=== PATIENT | female | born 1995 | race Caucasian/White ===

== ENCOUNTER 2021-02-07 07:18 | Inpatient (IN) | payer BC ==
[~2021-02-07] VITALS: Ht 167.6 cm; Wt 106.6 kg
[2021-02-07 09:07] LABS: BASOPHILS ABSOLUTE AUTO 0.03 K/mm3 (0.00-0.23); BASOPHILS PERCENT AUTO 0 % (0-2); EOSINOPHILS ABSOLUTE AUTO 0.05 K/mm3 (0.00-0.68); EOSINOPHILS PERCENT AUTO 1 % (0-6); Hematocrit 40.3 % (33.0-51.0); Hemoglobin 13.9 g/dL (11.5-16.0); IMMATURE GRAN ABSOLUTE AUTO 0.05 K/mm3 (0.00-0.10); IMMATURE GRAN PERCENT AUTO 1 % (0-1); LYMPHOCYTES PERCENT AUTO 25 % (21-46); MONOCYTES ABSOLUTE AUTO 0.38 K/mm3 (0.16-1.47); MONOCYTES PERCENT AUTO 4 % (4-13); Mean Corpuscular HGB 29.7 pg (26.0-34.0); Mean Corpuscular HGB Conc 34.5 g/dL (31.5-36.5); Mean Corpuscular Volume 86 fL (80-100); Mean Platelet Volume 12.3 fL (9.1-12.4); NEUTROPHILS ABSOLUTE AUTO 6.25 K/mm3 (1.96-9.15); NEUTROPHILS PERCENT AUTO 69 % (41-73); Platelet Count 198 K/mm3 (150-400); RDW Coefficient Variation 14.6 % (11.7-14.2); RDW Standard Deviation 45.9 fL (35.1-46.3); Red Blood Cell Count 4.68 M/mm3 (3.80-5.20); White Blood Cell Count 9.06 K/mm3 (4.00-11.30)
[2021-02-07 09:21] LABS: SARS-Cov-2 (COVID-19) PCR, MMC NEGATIVE (NEGATIVE)
[2021-02-07] MEDS ORDERED: PRENATAL TABLE1 EAC2 PO (09:43)
[2021-02-07] MEDS ORDERED: Acerola C500 MG PO (09:44)
[2021-02-07] MEDS ORDERED: FERROUS SULFAT325 M3 PO (09:44)
[2021-02-08] MEDS ORDERED: DOCU100 PO (13:35)
[2021-02-08] MEDS ORDERED: IBUP800 PO (13:35)
--- NOTE | 2021-02-08 16:26 | NUR ---
1545 assumed care of patient sleeping. s/o at bedside caring for
--- NOTE | 2021-02-08 16:27 | NUR ---
1615 awake and working on . having latch issues. reports lower back pain and mild cramping but denies need for pain medication at this time
--- NOTE | 2021-02-08 17:08 | NUR ---
1640 LATCHED USING SHIELD AND WAS SUCKING WELL. LIPS FLARED APPROPRIATELY. PATIENT REOPRST LATCH VERY PAINFUL IN HER ENTIRE NIPPLE AREA. RELATCHED TWICE WITH NO IMPROVEMENT. REMOVED SHIELD AND LATCHED BABY DIRECTLY ON THE NIPPLE. LATCHED WELL AND SUCKING WELL WITH APPROPRIATE AMT OF AREOLA IN HER MOUTH. PATIENT REPORTS STILL PAINFUL. NO SKIN BREAKDOWN PRESENT. BABY NURSED FOR 15 MINUTES MOM STATES PAIN NEVER REALLY IMPROVED. WILL SWITCH TO RIGHT BREAST WITH NEXT FEED AND EVEALUATE DISCOMFORT
[2021-02-09 06:50] LABS: Hematocrit 38.7 % (33.0-51.0); Hemoglobin 12.5 g/dL (11.5-16.0); Mean Corpuscular HGB 29.1 pg (26.0-34.0); Mean Corpuscular HGB Conc 32.3 g/dL (31.5-36.5); Mean Corpuscular Volume 90 fL (80-100); Platelet Count 184 K/mm3 (150-400); RDW Coefficient Variation 15.2 % (11.7-14.2); RDW Standard Deviation 49.6 fL (35.1-46.3); White Blood Cell Count 9.18 K/mm3 (4.00-11.30)
== END 2021-02-09 17:55 | disposition home or self-care (01) | DRG 807 ==
LOC: OBS 07:18 → BC 07:18 → OBS 08:03 → BC 08:15
PROVIDERS: ADMIT Nurse Practitioner Obstetrics & Gynecology
PROC: 10E0XZZ Delivery of Products of Conception, External Approach (ICD-10-PCS; principal; 2021-02-08)
PROC: 0KQM0ZZ Repair Perineum Muscle, Open Approach (ICD-10-PCS; 2021-02-08)
PROC: 3E0R3BZ Introduction of Anesthetic Agent into Spinal Canal, Percutaneous Approach (ICD-10-PCS; 2021-02-08)
PROC: 00HU33Z Insertion of Infusion Device into Spinal Canal, Percutaneous Approach (ICD-10-PCS; 2021-02-08)
DX: O42.02 Full-term premature rupture of membranes, onset of labor within 24 hours of rupture (principal); Z37.0 Single live birth; O70.1 Second degree perineal laceration during delivery; Z3A.40 40 weeks gestation of pregnancy; Z20.822 Contact with and (suspected) exposure to COVID-19; O69.81X0 Labor and delivery complicated by cord around neck, without compression, not applicable or unspecified; Z88.1 Allergy status to other antibiotic agents
CPT/HCPCS: 36415; 51702; 59025; 81003; 85025; 85027; 86850; 86900; 86901; A9270; J0290; J1885; J2210; J2590; J3010; J7120; U0004

== ENCOUNTER → 2022-05-12 | Outpatient (CLI) | payer BC ==
[~2022-05-12] MED LIST: Acerola C500 MG PO; DOCU100 PO; FERROUS SULFAT325 M3 PO; IBUP800 PO; PRENATAL TABLE1 EAC2 PO
== END | disposition home or self-care (01) ==
LOC: LAB 08:30 → LAB SHORT 08:30
DX: N76.0 Acute vaginitis (principal); R31.9 Hematuria, unspecified
CPT/HCPCS: 87077; 87086; 87186

== ENCOUNTER → 2023-05-02 | Outpatient (CLI) | payer BC | LOC: LAB 16:12 → LAB SHORT 16:12 | DX: R30.0 Dysuria (principal) | CPT/HCPCS: 87077; 87086; 87186 ==

== ENCOUNTER → 2024-06-07 | Outpatient (CLI) | payer BC ==
[2024-06-10 11:23] LABS: HEPATITIS C AB CIA INTERP Negative (Negative); HEPATITIS C ANTIBODY CIA INDEX 0.18 IV
== END ==
LOC: LAB SHORT 18:40 → LAB 18:40
PROVIDERS: Advanced Practice Midwife
DX: Z34.93 Encounter for supervision of normal pregnancy, unspecified, third trimester (principal)
CPT/HCPCS: 86803

== ENCOUNTER → 2024-08-08 | Outpatient (CLI) | payer BC ==
[2024-08-08 16:39] LABS: BASOPHILS ABSOLUTE AUTO 0.02 K/mm3 (0.00-0.23); BASOPHILS PERCENT AUTO 0 % (0-2); EOSINOPHILS ABSOLUTE AUTO 0.04 K/mm3 (0.00-0.68); EOSINOPHILS PERCENT AUTO 1 % (0-6); Hematocrit 36.2 % (33.0-51.0); Hemoglobin 12.2 g/dL (11.5-16.0); IMMATURE GRAN ABSOLUTE AUTO 0.02 K/mm3 (0.00-0.10); IMMATURE GRAN PERCENT AUTO 0 % (0-1); LYMPHOCYTES ABSOLUTE AUTO 2.02 K/mm3 (0.84-5.20); LYMPHOCYTES PERCENT AUTO 25 % (21-46); MONOCYTES ABSOLUTE AUTO 0.26 K/mm3 (0.16-1.47); MONOCYTES PERCENT AUTO 3 % (4-13); Mean Corpuscular HGB 28.8 pg (26.0-34.0); Mean Corpuscular HGB Conc 33.7 g/dL (31.5-36.5); Mean Corpuscular Volume 85 fL (80-100); Mean Platelet Volume 12.3 fL (9.1-12.4); NEUTROPHILS ABSOLUTE AUTO 5.72 K/mm3 (1.96-9.15); NEUTROPHILS PERCENT AUTO 71 % (41-73); Platelet Count 192 K/mm3 (150-400); RDW Coefficient Variation 14.2 % (11.7-14.2); RDW Standard Deviation 42.8 fL (35.1-46.3); Red Blood Cell Count 4.24 M/mm3 (3.80-5.20); White Blood Cell Count 8.08 K/mm3 (4.00-11.30)
[2024-08-08 17:26] LABS: Albumin, Blood 2.6 g/dL (3.4-5.0); Albumin/Globulin Ratio 0.7 (0.8-1.8); Bilirubin, Total 0.5 mg/dL (0.1-1.0); Bun/Creatinine Ratio 13.9 (12.0-20.0); Calcium, Blood 8.4 mg/dL (8.5-10.1); Creatinine, Blood 0.58 mg/dL (0.40-1.00); Globulin, Blood 3.8 g/dL (2.2-4.0); Potassium, Blood 3.7 mmol/L (3.5-5.5); Total Protein, Blood 6.4 g/dL (6.4-8.2)
== END ==
LOC: LAB 13:48 → LAB SHORT 13:48
PROVIDERS: Advanced Practice Midwife
DX: O16.3 Unspecified maternal hypertension, third trimester (principal)
CPT/HCPCS: 80053; 85025

== ENCOUNTER → 2024-08-10 | Outpatient (CLI) | payer BC ==
[2024-08-10 10:59] LABS: Protein, Urine Quantitative 9.9 mg/dL (0.0-11.9)
== END | disposition home or self-care (01) ==
LOC: LAB SHORT 07:15 → LAB 07:15
PROVIDERS: Advanced Practice Midwife
DX: O16.3 Unspecified maternal hypertension, third trimester (principal)
CPT/HCPCS: 81050; 84156

== ENCOUNTER 2024-08-15 02:50 | Inpatient (IN) | payer BC ==
[~2024-08-15] VITALS: Ht 167.6 cm; Wt 114.0 kg
[2024-08-15] VITALS (30 sets, daily range): BP systolic 108–141; BP diastolic 57–92
[2024-08-15] MEDS ORDERED: OXYTOCIN/RINGER'S LACTATE 500 ML IV PRN (03:35)
[2024-08-15] MEDS ORDERED: Acetaminophen 500 MG Tab PO PRN (03:35)
[2024-08-15] MEDS ORDERED: Lactated Ringer's 1,000 ML IV PRN (03:35)
[2024-08-15] MEDS ORDERED: Calcium Carbonate 500 MG Tab Chew PO PRN (03:35)
[2024-08-15] MEDS ORDERED: ePHEDrine Sulfate 50 MG/ML 1ML Injection XX PRN (03:35)
[2024-08-15] MEDS ORDERED: Misoprostol 200 MCG Tab PR PRN (03:35)
[2024-08-15] MEDS ORDERED: FentaNYL 2mcg/ml-Bup 0.1% Epd 250 ML EPI PRN (03:35)
[2024-08-15] MEDS ORDERED: Tranexamic Acid 100 ML IV SCH (03:35)
[2024-08-15] MEDS ORDERED: Oxytocin 10 Unit / ML Vial IM PRN (03:35)
[2024-08-15] MEDS ORDERED: Lactated Ringer's 1,000 ML IV SCH ×3 (03:35→07:45)
[2024-08-15] MEDS ORDERED: Carboprost Tromethamine 250 MCG/ML 1ML Amp IM PRN ×2 (03:35→07:45)
[2024-08-15] MEDS ORDERED: Ondansetron HCl 2 MG / ML 2ML Vial IV PRN (03:35)
[2024-08-15] MEDS ORDERED: Methylergonovine Maleate 0.2MG / ML 1ML Amp IM PRN (03:35)
[2024-08-15] MEDS ORDERED: Misoprostol 200 MCG Tab BC PRN (03:35)
[2024-08-15 04:13] LABS: BASOPHILS ABSOLUTE AUTO 0.01 K/mm3 (0.00-0.23); BASOPHILS PERCENT AUTO 0 % (0-2); EOSINOPHILS ABSOLUTE AUTO 0.04 K/mm3 (0.00-0.68); EOSINOPHILS PERCENT AUTO 0 % (0-6); Hematocrit 38.4 % (33.0-51.0); IMMATURE GRAN ABSOLUTE AUTO 0.02 K/mm3 (0.00-0.10); IMMATURE GRAN PERCENT AUTO 0 % (0-1); LYMPHOCYTES ABSOLUTE AUTO 2.34 K/mm3 (0.84-5.20); LYMPHOCYTES PERCENT AUTO 26 % (21-46); MONOCYTES ABSOLUTE AUTO 0.44 K/mm3 (0.16-1.47); MONOCYTES PERCENT AUTO 5 % (4-13); Mean Corpuscular HGB 28.8 pg (26.0-34.0); Mean Corpuscular HGB Conc 33.9 g/dL (31.5-36.5); Mean Corpuscular Volume 85 fL (80-100); Mean Platelet Volume 11.8 fL (9.1-12.4); NEUTROPHILS ABSOLUTE AUTO 6.11 K/mm3 (1.96-9.15); NEUTROPHILS PERCENT AUTO 68 % (41-73); Platelet Count 188 K/mm3 (150-400); RDW Coefficient Variation 14.5 % (11.7-14.2); RDW Standard Deviation 44.6 fL (35.1-46.3); Red Blood Cell Count 4.52 M/mm3 (3.80-5.20); White Blood Cell Count 8.96 K/mm3 (4.00-11.30)
[2024-08-15] MEDS ORDERED: Lactated Ringer's 1,000 ML IV ONE (04:14)
[2024-08-15 04:41] LABS: Albumin, Blood 2.8 g/dL (3.4-5.0); Albumin/Globulin Ratio 0.7 (0.8-1.8); Bilirubin, Total 0.3 mg/dL (0.1-1.0); Bun/Creatinine Ratio 12.7 (12.0-20.0); Calcium, Blood 8.9 mg/dL (8.5-10.1); Creatinine, Blood 0.55 mg/dL (0.40-1.00); Globulin, Blood 3.9 g/dL (2.2-4.0); Potassium, Blood 3.8 mmol/L (3.5-5.5); Total Protein, Blood 6.7 g/dL (6.4-8.2)
[2024-08-15] MEDS ORDERED: FLU VACC TS2024-25(6MOS UP)/PF 45 MCG/0.5 ML SYRINGE IM SCH (07:40)
[2024-08-15] MEDS ORDERED: Benzocaine Topical Anesthetic Spray 60GM TOP PRN (07:40)
[2024-08-15] MEDS ORDERED: Witch Hazel/Glycerin PADS TOP PRN (07:40)
[2024-08-15] MEDS ORDERED: OxyCODONE 5 mg/Acetamin 325 mg TABLET PO PRN (07:40)
[2024-08-15] MEDS ORDERED: Ibuprofen 400 MG Tab PO PRN (07:40)
[2024-08-15] MEDS ORDERED: OXYTOCIN/RINGER'S LACTATE 500 ML IV SCH (07:40)
[2024-08-15] MEDS ORDERED: Acetaminophen 325 MG TABLET PO PRN (07:40)
[2024-08-15] MEDS ORDERED: Docusate Sodium 100 MG Cap PO PRN (07:40)
[2024-08-15] MEDS ORDERED: Lanolin Cream TOP PRN (07:45)
[2024-08-15] MEDS ORDERED: Ketorolac Tromethamine 30mg Vial IV PRN (07:45)
[2024-08-15] MEDS ORDERED: Misoprostol 100 MCG Tab PO PRN (07:45)
[2024-08-15] MEDS ORDERED: Prenatal Vit/FE Fumarate/FA 1 Tab PO SCH (09:00)
--- NOTE | 2024-08-15 09:40 | NUR ---
ASSUMED CARE OF PT AT THIS TIME FROM MALU SARABIA AND NAOMI RN
[2024-08-16 03:56] VITALS: BP 137/82
[2024-08-16 07:56] VITALS: BP 137/89
[2024-08-16] MEDS ORDERED: IBU800 M1 PO (09:53)
[2024-08-16] MEDS ORDERED: ACET325 PO (09:55)
[2024-08-16] MEDS ORDERED: DOCU100 PO (09:56)
[2024-08-16] MEDS ORDERED: TUCKS1 EACH TOP (09:57)
[2024-08-16] MEDS ORDERED: LANOLIN40 GM TOP (09:58)
--- NOTE | 2024-08-16 11:03 | NUR ---
shift/discharge charting reviewed
[2024-08-16 12:15] VITALS: BP 129/82
--- NOTE | 2024-08-16 12:15 | NUR ---
Printed d/c instructions reviewed w/pt by Catyh Carlos, RN and Skyler Jiménez RN in room. Denies additional questions/concerns. ID bands matched w/nb. Pt d/c'd home ambulatory to care of .
--- NOTE | 2024-08-16 12:32 | NUR ---
DISCHARGE PACKET PRINTED AND REVIEWED WITH PT. ALL QUESTIONS ANSWERED. PAPER PRESCRIPTIONS PROVIDED TO PT. AWARE OF WHEN TO FOLLOW UP IN CLINIC AND WITH PROVIDER. AMBULATORY PT DISCHARGED TO HOME WITH .
== END 2024-08-16 12:30 | disposition home or self-care (01) | DRG 807 ==
LOC: OBS 02:50 → BC 02:54 → OBS 03:51 → BC 03:54
PROVIDERS: Family Medicine; ADMIT Advanced Practice Midwife
PROC: 10E0XZZ Delivery of Products of Conception, External Approach (ICD-10-PCS; principal; 2024-08-15)
PROC: 3E0R3BZ Introduction of Anesthetic Agent into Spinal Canal, Percutaneous Approach (ICD-10-PCS; 2024-08-15)
PROC: 00HU33Z Insertion of Infusion Device into Spinal Canal, Percutaneous Approach (ICD-10-PCS; 2024-08-15)
DX: O16.4 Unspecified maternal hypertension, complicating childbirth (principal); Z37.0 Single live birth; Z3A.39 39 weeks gestation of pregnancy; O71.82 Other specified trauma to perineum and vulva; O77.0 Labor and delivery complicated by meconium in amniotic fluid; Z88.1 Allergy status to other antibiotic agents; Z91.013 Allergy to seafood
CPT/HCPCS: 36415; 51702; 59025; 80053; 81003; 85025; 86850; 86900; 86901; 86923; 99214; A9270; J1885; J7120